=== PATIENT | female | born 1965 | race Hispanic/Latino ===

== ENCOUNTER 2018-04-06 09:46 | Outpatient (CLI) | payer OTHER ==
--- NOTE | 2018-04-06 12:44 | MMO ---
BILATERAL DIGITAL SCREENING MAMMOGRAMS: Date: 04/06/18 HISTORY: 53-year-old female with history of baseline digital screening mammography. No prior mammograms are av ailable. FINDINGS: This patient's mammogram was interpreted with the assistance of computer-aided detection. The breasts are heterogeneously dense, which can obscure small masses. There are some typically benig n calcifications bilaterally. No direct or indirect evidence of malignancy. IMPRESSION: BIRADS 2: Benign Finding(s) Continue routine screening. POS: [facility]
== END 2018-04-06 09:47 | disposition home or self-care (01) ==
LOC: SCSMAMMO 09:46
PROVIDERS: ATTEND Family Medicine
DX: Z12.31 Encounter for screening mammogram for malignant neoplasm of breast (principal)
CPT/HCPCS: 77067